=== PATIENT | male | born 1990 | race American Indian/Alaskan Native ===

== ENCOUNTER 2022-05-01 11:26 | Emergency (ER) | payer SELFPAY ==
--- NOTE | 2022-05-01 12:02 | Emergency Department Report ---
Stated Complaint: FEVER/FEELING WEAK Time Seen by Provider: 05/01/22 11:53 - HPI History of Present Illness: 1 day history of fever, shortness of breath, and weakness. - ROS Review of Systems: Fever and shortness of breath - Exam Physical Exam: Alert and oriented. MSE screening note: Focused history and physical exam performed. Due to findings the following was ordered: Chest x-ray, ED Disposition for MSE Condition: Stable
--- NOTE | 2022-05-01 12:33 | XRay Report ---
CHEST 2 VIEWS INDICATION / CLINICAL INFORMATION: sob, fever. COMPARISON: None available. FINDINGS: SUPPORT DEVICES: None. HEART / MEDIASTINUM: No significant abnormality. LUNGS / PLEURA: No significant pulmonary or pleural abnormality. No pneumothorax. ADDITIONAL FINDINGS: No significant additional findings. IMPRESSION: 1. No acute findings. Signer Name: Ramiro Elena Jr, MD Signed: 05/01/2022 12:29 PM Workstation Name: [id number]
[2022-05-01] MEDS ORDERED: KETOROLAC 30 MG/1 ML INJ IV ONE (14:00)
[2022-05-01] MEDS ORDERED: SODIUM CHLORIDE 0.9% 1000 ML 1,000 ML IV ONE ×2 (14:00→16:36)
[2022-05-01] MEDS ORDERED: SODIUM CHLORIDE 0.9% 1000 ML 1,000 ML ONE (14:01)
[2022-05-01] MEDS ORDERED: ACETAMINOPHEN 325 MG TAB PO ONE (14:01)
--- NOTE | 2022-05-01 14:06 | Emergency Department Report ---
- General Chief complaint: Weakness Stated complaint: FEVER/FEELING WEAK Time Seen by Provider: 05/01/22 11:53 Source: patient Mode of arrival: Ambulatory Limitations: No Limitations - History of Present Illness Initial comments: Patient is a 31-year-old male presenting to ED with complaint of fever, body aches and generalized weakness beginning yesterday evening. He denies any recent illness or sick contacts. - Related Data Allergies Allergy/AdvReac Type Severity Reaction Status Date / Time No Known Allergies Allergy Verified 05/01/22 11:58 ED Review of Systems ROS: Stated complaint: FEVER/FEELING WEAK Other details as noted in HPI Constitutional: fever, weakness Respiratory: denies: cough, shortness of breath, wheezing Cardiovascular: denies: chest pain, palpitations Gastrointestinal: denies: abdominal pain, nausea, diarrhea Musculoskeletal: arthralgia, myalgia Skin: denies: rash, lesions Neurological: denies: headache, weakness, paresthesias Psychiatric: denies: anxiety, depression ED Physical Exam - General Limitations: No Limitations General appearance: alert, in distress - Head Head exam: Present: atraumatic, normocephalic - Eye Eye exam: Present: normal appearance, PERRL, EOMI - Neck Neck exam: Absent: tenderness, meningismus, lymphadenopathy - Respiratory Respiratory exam: Present: normal lung sounds bilaterally. Absent: respiratory distress - Cardiovascular Cardiovascular Exam: Present: normal rhythm, tachycardia, normal heart sounds - GI/Abdominal GI/Abdominal exam: Present: soft. Absent: distended, tenderness - Rectal Rectal exam: Present: deferred - Extremities Exam Extremities exam: Present: other (Mild weakness in both legs.). Absent: tenderness - Neurological Exam Neurological exam: Present: alert, oriented X3, CN II-XII intact - Psychiatric Psychiatric exam: Present: normal affect, normal mood - Skin Skin exam: Present: warm, dry, intact, normal color ED Course Vital Signs 05/01/22 05/01/22 05/01/22 11:58 14:00 14:02 Temperature 100.3 F H 101.9 F H Pulse Rate 105 H 105 H Respiratory 16 14 Rate Blood Pressure O2 Sat by Pulse 99 100 Oximetry 05/01/22 05/01/22 05/01/22 14:13 14:15 14:31 Temperature Pulse Rate 108 H 95 H Respiratory 20 18 Rate Blood Pressure 116/80 116/80 O2 Sat by Pulse 100 99 100 Oximetry 07/07/22 07/07/22 07/07/22 14:45 15:01 15:15 Temperature Pulse Rate 98 H 90 97 H Respiratory 20 11 L 17 Rate Blood Pressure 125/67 125/67 118/58 O2 Sat by Pulse 99 98 98 Oximetry 05/01/22 05/01/22 05/01/22 15:31 15:45 16:01 Temperature Pulse Rate 82 95 H 88 Respiratory 15 10 L 24 Rate Blood Pressure 118/58 132/42 116/51 O2 Sat by Pulse 96 96 95 Oximetry 05/01/22 05/01/22 05/01/22 16:15 16:31 16:45 Temperature Pulse Rate 104 H 82 95 H Respiratory 18 10 L 21 Rate Blood Pressure 103/33 101/30 104/51 O2 Sat by Pulse 99 98 97 Oximetry 05/01/22 05/01/22 17:01 17:14 Temperature 98.7 F Pulse Rate 84 Respiratory 12 Rate Blood Pressure 104/51 O2 Sat by Pulse 98 Oximetry ED Medical Decision Making - Lab Data Result diagrams: 05/01/22 14:14 - Medical Decision Making Tylenol given for low-grade fever. Chest x-ray unremarkable. CBC and CMP also grossly unremarkable except for initial lactic of 2.3. CK 359. Patient given 2 L of IV saline. On reassessment patient states his symptoms are improved. Stable for discharge. Critical care attestation.: If time is entered above; I have spent that time in minutes in the direct care of this critically ill patient, excluding procedure time. ED Disposition Clinical Impression: Generalized weakness, Low grade fever Disposition: 01 HOME / SELF CARE / HOMELESS Is pt being admited?: No Condition: Stable Instructions: Weakness, [id number], Fever, Adult Time of Disposition: 18:21
--- NOTE | 2022-05-01 14:53 | XRay Report ---
XR chest 1V ap INDICATION / CLINICAL INFORMATION: Fever COMPARISON: 05/01/2022 FINDINGS: SUPPORT DEVICES: None. HEART / MEDIASTINUM: No significant abnormality. LUNGS / PLEURA: Lungs are clear. Costophrenic sulci are sharp. No pneumothorax. ADDITIONAL FINDINGS: No significant additional findings. IMPRESSION: 1. No acute findings. Signer Name: Mahad Salazar MD Signed: 05/01/2022 2:47 PM Workstation Name: [id number]
[2022-05-01 16:09] LABS: Alanine Aminotransferase 26 units/L (7-56); Albumin 5.4 g/dL (3.9-5); BUN/Creatinine Ratio 10; Blood Urea Nitrogen 10 mg/dL (9-20); Calcium 10.1 mg/dL (8.4-10.2); Hemolysis Index 10
[2022-05-01 16:17] LABS: Color,Urine Straw (Yellow)
[2022-05-01 16:18] LABS: Bilirubin,Urine Negative (Negative); Blood,Urine Negative (Negative); PH,Urine 8.5 (5.0-7.0); Protein,Urine <15 mg/dL mg/dL (Negative); Urobilinogen,Urine < 2.0 mg/dL (<2.0)
[2022-05-01 16:20] LABS: Bilirubin,Direct < 0.2 mg/dL (0-0.2)
[2022-05-01 17:14] VITALS: BP 104/51
[2022-05-01] MEDS ORDERED: IBUPROFEN 800 MG TAB PO ONE (18:21)
== END 2022-05-01 18:50 | disposition home or self-care (01) ==
LOC: ED 11:26
DX: R53.1 Weakness (principal); R50.9 Fever, unspecified
CPT/HCPCS: 36415; 71045; 71046; 80048; 80076; 81001; 82140; 82550; 87040; 96361; 96374; 99284; J1885; J7030